=== PATIENT | female | born 1990 | race Caucasian/White ===

== ENCOUNTER 2023-02-22 11:18 | Emergency (ER) | payer MEDICAID ==
[~2023-02-22] VITALS: Ht 170.2 cm; Wt 72.6 kg
[2023-02-22 13:06] VITALS: BP 131/76; TEMP 98.1; O2SAT 98
== END 2023-02-22 13:06 | disposition home or self-care (01) ==
LOC: ER 11:18
DX: O26.892 Other specified pregnancy related conditions, second trimester (principal); M79.605 Pain in left leg; Z3A.20 20 weeks gestation of pregnancy
CPT/HCPCS: A4663

== ENCOUNTER 2024-07-09 10:55 | Emergency (ER) | payer MEDICAID ==
[~2024-07-09] VITALS: Ht 170.2 cm; Wt 66.7 kg
[2024-07-09] MEDS ORDERED: ACET1TAB23 PO (12:39)
[2024-07-09 12:46] VITALS: BP 129/88; TEMP 98.8; O2SAT 99
== END 2024-07-09 12:50 | disposition home or self-care (01) ==
LOC: ER 10:55
DX: N64.4 Mastodynia (principal)
CPT/HCPCS: A4606; A4663; A6209